=== PATIENT | male | born 1935 | race Caucasian/White ===

== ENCOUNTER 2021-10-14 00:34 | Observation (INO) ==
--- NOTE | 2021-10-14 01:21 | DR.CP ---
HPI Time Seen Time Seen by Provider: 10/14/21 00:59 PCP Primary Care Physician: JAYMIE AMRENTA HPI Comment HPI Comment: PATIENT IS 86YR OLD MALE WITH HISTORY OF CAD, S/P CABG AND CARDIAC STENT IN ER WITH BILATERAL CHEST AND ARM PAIN AND PAIN BOTH LEGS SINCE 17:00PM LAST EVENING. PAIN IS SHARP. 9/10 ASSOCIATED WITH WEAKNESS AND SLIGHT SOB. NO COUGH OR CONGESTION. NO FEVER OR DYSURIA. NO NAUSEA, VOMITING OR DIARRHRA. PAIN IS CONSTANT. Complaint Chief Complaint Doctor Comments: BILATERAL CHEST AND ARM PAIN AND BILATERAL LEG PAIN SINCE 17:00PM LAST EVENING. Chief Complaint:: PT AMBULATORY IN ED WITH C/O BILATERAL CHEST PAIN, BILATERAL ARM PAIN AND BILATERAL LEG SINCE AROUND 5PM. COVID-19 Coronavirus risk:travel/contact w/high risk person: No Has patient experienced Coronavirus symptoms: No Reviewed Nurses Notes Review: Yes Source History Provided: Patient Mode of Arrival Mode of Arrival: Ambulatory Timing Onset of Chief Complaint: 10/13/21 Came on: Suddenly Duration Duration: Constant Duration: Hours Location Location of Chest Pain: Right, Left and Chest (ARMS AND LEGS.) Context Onset: At rest Cardiac Risk Factors: Hyperlipidemia and HTN PE Risk Factors: None History of: NV, Angioplasty and Other (ALIVE AND IBUPROFEN.) Prehospital Care: None Severity Severity: Moderate Modifying Factors Worsens: Exertion Impoves: Rest Associated Signs and Symptoms Associated Signs and Symptoms: Shortness of Breath PMH PMH Past Medical History: Yes Past Medical History: Arthritis, CHF, Coronary Artery Disease, GERD, Hypertension and Hypothyroidism Past Surgical History: Yes Surgical History: Angioplasty/Stents and CABG/Valve Surgery Family History History of Family Medical Conditions: No Social History Does patient currently use any type of tobacco product: No Have you used tobacco products in the last 12 months: No Type of Tobacco Use: None Does any household member use tobacco: No Alcohol Use: None Do you use any recreational Drugs:: No Lives With: Spouse Lives Where: Home Travel Risk Coronavirus risk:travel/contact w/high risk person: No Has patient experienced Coronavirus symptoms: No Infectious screening In the last 2 months have you had wt loss of >10#?: NO Have you had fever, night sweats or hemotysis?: No Have you traveled outside the country in the last 6 months?: No Isolation: Standard ROS Review of Systems Constitutional: See HPI, Weakness and Fatigue; negative Fever Eyes: No Symptoms Reported and See HPI ENTM: See HPI; negative No Symptoms Reported, Nose Discharge, Nose Congestion and Throat Swelling Respiratoy: No Symptoms Reported, See HPI and Short of Breath (ON EXERTION.); negative Moist Cough Cardiovascular: No Symptoms Reported, See HPI and Chest Pain Gastrointestinal/Abdominal: No Symptoms Reported and See HPI; negative Abdominal Pain, Diarrhea, Nausea and Vomiting Genitourinary: No Symptoms Reported and See HPI; negative Dysuria Neurological: See HPI and Weakness; negative Headache and Dizziness Musculoskeletal: No Symptoms Reported and See HPI Integumentary: No Symptoms Reported and See HPI; negative Dryness, Rash and Juandice Hematologic/Lymphatic: No Symptoms Reported, See HPI, Easy Bleeding and Easy Bruising Endocrine: No Symptoms Reported and Intolerance to Cold; negative Increased Thirst and Increased Urine Psychiatric: No Symptoms Reported and See HPI All Other Systems: Reviewed and Negative PE Vitals Vitals: Temperature 98.2 F Pulse Rate 66 Respiratory Rate 15 Blood Pressure [Right Arm] 133/68 Blood Pressure 156/70 O2 Sat by Pulse Oximetry 98 General Limitations: No Limitations General Appearance: Alert and In No Apparent Distress (AT REST.) Head Head Exam: Normal Inspection Eyes Eye exam: Normal Appearance; negative Scleral Icterus and Conjunctival Injection ENT ENT Exam: Normal Exam; negative Normal Oropharynx, Normal External Ear Exam and Mucous Membranes Moist Chest Chest Inspection: Normal Inspection and Symmetric Chest Wall Rise; negative Tenderness Respiratory Respiratory Exam: Normal Lung Sounds Bilat; negative Accessory Muscle Use, Chest Wall Tenderness and Respiratory Distress Respiratory Exam: Bilateral: Rhonchi and Lower: Rhonchi Cardiovascular Cardiovascular Exam: Regular Rate, Normal Rhythm, Normal Heart Sounds and Systolic Murmur; negative Diastolic Murmur Pulse: Normal Edema: Bilateral, Lower (TRACE) and Extremity Abdominal Exam Abdominal Exam: Normal Inspection, Normal Bowel Sounds and Soft; negative Tenderness Extremities Extremities Exam: Normal Inspection, Normal Capillary Refill and Edema (TRACE.) Back Back Exam: Normal Inspection; negative (R) CVA Tenderness and (L) CVA Tenderness Neurologic Neurological Exam: Alert and Oriented X3; negative Motor Sensory Deficit Psychiatric Psychiatric Exam: Normal Affect and Normal Mood Skin Skin Exam: Warm, Dry, Intact and Normal Color MDM Additional Information Additional Information Obtained From: Old Records and Family Differential Diagnosis Differential Diagnosis: Angina, Chest Wall Pain, Cholelithasis, CHF, Costochondritis, Gastritis, Myocardial Infarction, Pericarditis, Pleuritis, Pneumonia, Pneumothorax and Pulmonary Embolus COURSE Treatment Treatment: SEE ORDERS.. ASA 324MG PO CHEWABLE, NTG 0,4MG Q5MIN PRN TIMES 3 AND PEPCID 20MG IVPB IN ER. NS 50CC/HR. Consultation Consultation Comments: DISCUSSED PATIENT WITH DR. MAXWELL. SHE WILL ADMIT P ATIENT. Education/Counseling Education/Counseling: Patient Educated On: Diagnosis ROR Labs Reviewed Laboratory Results Reviewed?: Yes Result Diagrams: 10/14/21 01:44 10/14/21 01:44 Laboratory: WBC 5.5 X10^3/uL (3.6-10.0) 10/14/21 01:44 RBC 3.93 X10^6/uL (4.7-6.0) L 10/14/21 01:44 Hgb 12.6 g/dL (13.5-18.0) L 10/14/21 01:44 Hct 35.7 % (42.0-54.0) L 10/14/21 01:44 MCV 90.8 fL (80.0-100.0) 10/14/21 01:44 MCH 32.0 pg (27.0-34.0) 10/14/21 01:44 MCHC 35.2 g/dL (33.0-35.0) H 10/14/21 01:44 RDW 14.0 % (11.6-16.5) 10/14/21 01:44 Plt Count 204 X10^3/uL (150.0-450.0) 10/14/21 01:44 MPV 8.1 fL (7.4-11.0) 10/14/21 01:44 Neut % (Auto) 57.9 % (42.0-75.0) 10/14/21 01:44 Lymph % (Auto) 24.2 % (21.0-51.0) 10/14/21 01:44 [place] % (Auto) 14.2 % (0.0-13.0) H 10/14/21 01:44 Eos % (Auto) 3.1 % (0.9-2.9) H 10/14/21 01:44 Baso % (Auto) 0.6 % (0.2-1.0) 10/14/21 01:44 Neut # (Auto) 3.2 x10^3/uL (2.2-4.8) 10/14/21 01:44 Lymph # (Auto) 1.3 X10^3/uL (1.3-2.9) 10/14/21 01:44 [place] # (Auto) 0.8 x10^3/uL (0.3-0.8) 10/14/21 01:44 Eos # (Auto) 0.2 x10^3/uL (0.0-0.2) 10/14/21 01:44 Baso # (Auto) 0.0 X10^3/uL (0.0-0.1) 10/14/21 01:44 Absolute Nucleated RBC 0.1 /100WBC 10/14/21 01:44 D-Dimer 0.83 ug/ml (0.0-0.57) H* 10/14/21 01:44 Sodium 127 mmol/L (136-145) L 10/14/21 01:44 Corrected Sodium 127 mmol/L (136-145) L 10/14/21 01:44 Potassium 4.0 mmol/L (3.5-5.1) 10/14/21 01:44 Chloride 95 mmol/L (98-107) L 10/14/21 01:44 Carbon Dioxide 26.8 mmol/L (21-32) 10/14/21 01:44 BUN 10 mg/dL (7-18) 10/14/21 01:44 Creatinine 0.74 mg/dL (0.70-1.30) 10/14/21 01:44 Est GFR (MDRD) Af Amer > 60 (>60) 10/14/21 01:44 Est GFR (MDRD) Non-Af > 60 (>60) 10/14/21 01:44 Glucose 113 mg/dL (65-99) H 10/14/21 01:44 Calcium 8.6 mg/dL (8.5-10.1) 10/14/21 01:44 Corrected Calcium 9.2 mg/dL (8.5-10.1) 10/14/21 01:44 Total Bilirubin 0.50 mg/dL (0.2-1.0) 10/14/21 01:44 AST 21 Units/L (15-37) 10/14/21 01:44 ALT 26 Units/L (12-78) 10/14/21 01:44 Alkaline Phosphatase 68 Units/L (46-116) 10/14/21 01:44 Creatine Kinase 372 Units/L (39-308) H 10/14/21 01:44 CK-MB (CK-2) 8.7 ng/mL (0-4.0) H* 10/14/21 01:44 CK/CKMB % Calc 2.3 % (<4) 10/14/21 01:44 Troponin I < 0.02 ng/mL (0-1.5) 10/14/21 01:44 B-Natriuretic Peptide 60.9 pg/mL (0-79) 10/14/21 01:44 Total Protein 7.0 g/dL (6.4-8.2) 10/14/21 01:44 Albumin 3.3 g/dL (3.4-5.0) L 10/14/21 01:44 Globulin 3.7 g/dL (2.5-4.5) 10/14/21 01:44 Albumin/Globulin Ratio 0.9 Ratio (1.1-2.1) L 10/14/21 01:44 Specimen Type Random urine 10/14/21 01:35 Urine Color Yellow (YELLOW) 10/14/21 01:35 Urine Appearance Clear (CLEAR) 10/14/21 01:35 Urine pH 7.0 (5.0 - 8.0) 10/14/21 01:35 Ur Specific [place] 1.015 (1.000-1.030) 10/14/21 01:35 Urine Protein Negative (NEGATIVE) 10/14/21 01:35 Urine Glucose (UA) Negative (NEGATIVE) 10/14/21 01:35 Urine Ketones Negative (NEGATIVE) 10/14/21 01:35 Urine Occult Blood 1+ (NEGATIVE) 10/14/21 01:35 Urine Nitrite Negative (NEGATIVE) 10/14/21 01:35 Urine Bilirubin Negative (NEGATIVE) 10/14/21 01:35 Urine Urobilinogen Normal (NORMAL) 10/14/21 01:35 Ur Leukocyte Esterase Negative (NEGATIVE) 10/14/21 01:35 Urine RBC None seen /HPF (0-3) 10/14/21 01:35 Urine WBC None seen /HPF (0-5) 10/14/21 01:35 Ur Squamous Epith Cells Few /HPF (NEGATIVE) 10/14/21 01:35 Urine Bacteria Negative /HPF (NEGATIVE) 10/14/21 01:35 Ur Culture Indicated? No/not indicated 10/14/21 01:35 SARS CoV-2 RNA Rapid VIANEY Negative (NEGATIVE) 10/14/21 03:26 XRAY XRAY Interpreted by: Radiologist (REPORTS NOTED AND DISCUSSED WITH PATIENT.) and Self EKG Rate: 74 [place]: Normal Rhythm: NSR Block: None Hypertrophy: None ST: Infarct Opioid Opioid Risk Tool Age (Kartik box if 16-45): No History of Preadolescent Sexual Abuse: No Total: 0 Total Score Risk Category: Low Risk Copyright: Darvin DAHL predicting aberrant behaviors Diagnosis Discharge Problem: Chest pain, rule out acute myocardial infarction, Acute hyponatremia, Mild dehydration Instructions Forms: Precautions for COVID19 [facility] Patient Portal Social Distancing
[2021-10-14] MEDS ORDERED: PEPCID 20 MG IV PREMIX* 20 MG/50 ML BAG IV ONE (01:24)
[2021-10-14] MEDS ORDERED: NITROSTAT SL PRN (01:24)
[2021-10-14] MEDS ORDERED: ASPIRIN EC 81 MG PO ONE (01:24)
[2021-10-14] MEDS ORDERED: ASPIRIN 81 MG CHEWTAB ONE (01:29)
[2021-10-14] MEDS ORDERED: PEPCID 20 MG IV PREMIX* 50 ML IV ONE (01:29)
[2021-10-14 02:02] LABS: BILIRUBIN,URINE NEGATIVE (NEGATIVE); BLOOD/HEMOGLOBIN,URINE 1+ (NEGATIVE); GLUCOSE, URINE NEGATIVE (NEGATIVE); KETONES,URINE NEGATIVE (NEGATIVE); LEUKOCYTE ESTERASE ,URINE NEGATIVE (NEGATIVE); NITRITES,URINE NEGATIVE (NEGATIVE); PROTEIN,URINE NEGATIVE (NEGATIVE); UROBILINOGEN,URINE NORMAL (NORMAL)
[2021-10-14 02:08] LABS: APPEARANCE,URINE CLEAR (CLEAR); COLOR,URINE YELLOW (YELLOW)
[2021-10-14 02:09] LABS: BASOPHILS % (AUTO) 0.6 % (0.2-1.0); EOSINOPHILS # (AUTO) 0.2 x10^3/uL (0.0-0.2); EOSINOPHILS % (AUTO) 3.1 % (0.9-2.9); HEMATOCRIT 35.7 % (42.0-54.0); HEMOGLOBIN 12.6 g/dL (13.5-18.0); LYMPHOCYTES # (AUTO) 1.3 X10^3/uL (1.3-2.9); LYMPHOCYTES % (AUTO) 24.2 % (21.0-51.0); MEAN CORPUSCULAR HGB CONC 35.2 g/dL (33.0-35.0); MEAN CORPUSCULAR VOLUME 90.8 fL (80.0-100.0); MEAN PLATELET VOLUME 8.1 fL (7.4-11.0); MONOCYTES # (AUTO) 0.8 x10^3/uL (0.3-0.8); MONOCYTES % (AUTO) 14.2 % (0.0-13.0); NEUTROPHILS # (AUTO) 3.2 x10^3/uL (2.2-4.8); NEUTROPHILS % (AUTO) 57.9 % (42.0-75.0); PLATELET COUNT 204 X10^3/uL (150.0-450.0); RED BLOOD COUNT 3.93 X10^6/uL (4.7-6.0); WHITE BLOOD COUNT 5.5 X10^3/uL (3.6-10.0)
[2021-10-14 02:09] LABS: BACTERIA,URINE NEGATIVE /HPF (NEGATIVE); RBC,URINE NONE SEEN /HPF (0-3); SQUAMOUS EPITHELIAL CELL,UR FEW /HPF (NEGATIVE)
--- NOTE | 2021-10-14 02:31 | RAD ---
HISTORYPT C/O CHEST PAIN PMH: CHF, CAD, HTN PSH: ANGIOPLASTY/STENTS, CABG/VALVESTUDYCHEST, 1 VIEWCOMPARISONNoneFINDINGSThe trachea is midline. The cardiac silhouette is unremarkable. Changes of prior CABG surgery. The lungs are clear without focal infiltrate or effusion. Pulmonary vasculature within normal limits. No pneumothorax. The bony thorax is unremarkable.IMPRESSIONNo acute cardiopulmonary findings .Electronically signed by: Saw Vegas (Oct 14, 2021 02:30:05)
[2021-10-14 02:59] LABS: ALANINE AMINOTRANSFERASE 26 Units/L (12-78); ALBUMIN 3.3 g/dL (3.4-5.0); ALKALINE PHOSPHATASE 68 Units/L (46-116); ASPARTATE AMINO TRANSFERASE 21 Units/L (15-37); BLOOD UREA NITROGEN 10 mg/dL (7-18); CALCIUM 8.6 mg/dL (8.5-10.1); CARBON DIOXIDE 26.8 mmol/L (21-32); CHLORIDE 95 mmol/L (98-107); CKMB % 2.3 % (<4); COR CA(FOR HYPOALB) 9.2 mg/dL (8.5-10.1); COR NA(FOR HYPERGLY) 127 mmol/L (136-145); CREATINE KINASE 372 Units/L (39-308); CREATININE 0.74 mg/dL (0.70-1.30); SODIUM 127 mmol/L (136-145); TROPONIN I < 0.02 ng/mL (0-1.5); eGFR NON BLACK RACES > 60 (>60)
[2021-10-14 03:01] LABS: CREATINE KINASE MB 8.7 ng/mL (0-4.0)
[2021-10-14] MEDS ORDERED: NS 1,000 ML IV 1,000 ML IV SCH (04:00)
--- NOTE | 2021-10-14 04:57 | CT ---
HISTORYCHEST PAIN, ELEVATED D-DIMERSTUDYCTA CHESTCOMPARISONChest radiograph 10/14/2021TECHNIQUEMultiple axial images of the chest were obtained from the thoracic inlet to the upper abdomen after the administration of IV contrast. 3D reconstructions utilizing axial MIPS imaging was performed and reviewed. Dose reduction techniques including Automated Exposure Control (AEC) and adjustment of mA and kV were utilized.FINDINGSThe mediastinum does not demonstrate significant pathological lymphadenopathy. There is no paracardial effusion observed. The thoracic aorta is normal in its contour without evidence for aneurysmal dilatation. The central pulmonary arterial system does not demonstrate central filling defects to suggest pulmonary emboli.Evaluation of the lung parenchyma fails to demonstrate focal consolidation or effusion . No pulmonary nodule or mass can be identified. The bony thorax is unremarkable in its appearance . The visualized portions of the upper abdomen are grossly unremarkable .IMPRESSIONUnremarkable CTA of the chest.Electronically signed by: Saw Vegas (Oct 14, 2021 04:56:10)
[2021-10-14 06:37] VITALS: BMI 22.8
--- NOTE | 2021-10-14 06:40 | DR.CP ---
HPI Time Seen Time Seen by Provider: 10/14/21 00:59 PCP Primary Care Physician: JAYMIE ARMENTA HPI Comment HPI Comment: THIS CHART HAS BEING COMPLETED. Complaint Chief Complaint:: PT AMBULATORY IN ED WITH C/O BILATERAL CHEST PAIN, BILATERAL ARM PAIN AND BILATERAL LEG SINCE AROUND 5PM. COVID-19 Coronavirus risk:travel/contact w/high risk person: No Has patient experienced Coronavirus symptoms: No Source History Provided: Patient Mode of Arrival Mode of Arrival: Ambulatory Timing Onset of Chief Complaint: 10/13/21 Associated Signs and Symptoms Associated Signs and Symptoms: Shortness of Breath PMH PMH Past Medical History: Yes Past Medical History: Arthritis, CHF, Coronary Artery Disease, GERD, Hypertension and Hypothyroidism Past Medical History Comment: BLADDER CANCER Past Surgical History: Yes Surgical History: Angioplasty/Stents and CABG/Valve Surgery Family History History of Family Medical Conditions: No Social History Does patient currently use any type of tobacco product: No Have you used tobacco products in the last 12 months: No Type of Tobacco Use: None Does any household member use tobacco: No Alcohol Use: None Do you use any recreational Drugs:: No Lives With: Spouse Lives Where: Home Travel Risk Coronavirus risk:travel/contact w/high risk person: No Has patient experienced Coronavirus symptoms: No Infectious screening In the last 2 months have you had wt loss of >10#?: NO Have you had fever, night sweats or hemotysis?: No Have you traveled outside the country in the last 6 months?: No Isolation: Standard PE Vitals Vitals: Temperature 98.2 F Pulse Rate 59 Respiratory Rate 12 Blood Pressure [Right Arm] 133/68 Blood Pressure 124/63 O2 Sat by Pulse Oximetry 95 ROR Labs Reviewed Result Diagrams: 10/14/21 01:44 10/14/21 01:44 Laboratory: WBC 5.5 X10^3/uL (3.6-10.0) 10/14/21 01:44 RBC 3.93 X10^6/uL (4.7-6.0) L 10/14/21 01:44 Hgb 12.6 g/dL (13.5-18.0) L 10/14/21 01:44 Hct 35.7 % (42.0-54.0) L 10/14/21 01:44 MCV 90.8 fL (80.0-100.0) 10/14/21 01:44 MCH 32.0 pg (27.0-34.0) 10/14/21 01:44 MCHC 35.2 g/dL (33.0-35.0) H 10/14/21 01:44 RDW 14.0 % (11.6-16.5) 10/14/21 01:44 Plt Count 204 X10^3/uL (150.0-450.0) 10/14/21 01:44 MPV 8.1 fL (7.4-11.0) 10/14/21 01:44 Neut % (Auto) 57.9 % (42.0-75.0) 10/14/21 01:44 Lymph % (Auto) 24.2 % (21.0-51.0) 10/14/21 01:44 [place] % (Auto) 14.2 % (0.0-13.0) H 10/14/21 01:44 Eos % (Auto) 3.1 % (0.9-2.9) H 10/14/21 01:44 Baso % (Auto) 0.6 % (0.2-1.0) 10/14/21 01:44 Neut # (Auto) 3.2 x10^3/uL (2.2-4.8) 10/14/21 01:44 Lymph # (Auto) 1.3 X10^3/uL (1.3-2.9) 10/14/21 01:44 [place] # (Auto) 0.8 x10^3/uL (0.3-0.8) 10/14/21 01:44 Eos # (Auto) 0.2 x10^3/uL (0.0-0.2) 10/14/21 01:44 Baso # (Auto) 0.0 X10^3/uL (0.0-0.1) 10/14/21 01:44 Absolute Nucleated RBC 0.1 /100WBC 10/14/21 01:44 D-Dimer 0.83 ug/ml (0.0-0.57) H* 10/14/21 01:44 Sodium 127 mmol/L (136-145) L 10/14/21 01:44 Corrected Sodium 127 mmol/L (136-145) L 10/14/21 01:44 Potassium 4.0 mmol/L (3.5-5.1) 10/14/21 01:44 Chloride 95 mmol/L (98-107) L 10/14/21 01:44 Carbon Dioxide 26.8 mmol/L (21-32) 10/14/21 01:44 BUN 10 mg/dL (7-18) 10/14/21 01:44 Creatinine 0.74 mg/dL (0.70-1.30) 10/14/21 01:44 Est GFR (MDRD) Af Amer > 60 (>60) 10/14/21 01:44 Est GFR (MDRD) Non-Af > 60 (>60) 10/14/21 01:44 Glucose 113 mg/dL (65-99) H 10/14/21 01:44 Calcium 8.6 mg/dL (8.5-10.1) 10/14/21 01:44 Corrected Calcium 9.2 mg/dL (8.5-10.1) 10/14/21 01:44 Total Bilirubin 0.50 mg/dL (0.2-1.0) 10/14/21 01:44 AST 21 Units/L (15-37) 10/14/21 01:44 ALT 26 Units/L (12-78) 10/14/21 01:44 Alkaline Phosphatase 68 Units/L (46-116) 10/14/21 01:44 Creatine Kinase 372 Units/L (39-308) H 10/14/21 01:44 CK-MB (CK-2) 8.7 ng/mL (0-4.0) H* 10/14/21 01:44 CK/CKMB % Calc 2.3 % (<4) 10/14/21 01:44 Troponin I < 0.02 ng/mL (0-1.5) 10/14/21 01:44 B-Natriuretic Peptide 60.9 pg/mL (0-79) 10/14/21 01:44 Total Protein 7.0 g/dL (6.4-8.2) 10/14/21 01:44 Albumin 3.3 g/dL (3.4-5.0) L 10/14/21 01:44 Globulin 3.7 g/dL (2.5-4.5) 10/14/21 01:44 Albumin/Globulin Ratio 0.9 Ratio (1.1-2.1) L 10/14/21 01:44 Specimen Type Random urine 10/14/21 01:35 Urine Color Yellow (YELLOW) 10/14/21 01:35 Urine Appearance Clear (CLEAR) 10/14/21 01:35 Urine pH 7.0 (5.0 - 8.0) 10/14/21 01:35 Ur Specific [place] 1.015 (1.000-1.030) 10/14/21 01:35 Urine Protein Negative (NEGATIVE) 10/14/21 01:35 Urine Glucose (UA) Negative (NEGATIVE) 10/14/21 01:35 Urine Ketones Negative (NEGATIVE) 10/14/21 01:35 Urine Occult Blood 1+ (NEGATIVE) 10/14/21 01:35 Urine Nitrite Negative (NEGATIVE) 10/14/21 01:35 Urine Bilirubin Negative (NEGATIVE) 10/14/21 01:35 Urine Urobilinogen Normal (NORMAL) 10/14/21 01:35 Ur Leukocyte Esterase Negative (NEGATIVE) 10/14/21 01:35 Urine RBC None seen /HPF (0-3) 10/14/21 01:35 Urine WBC None seen /HPF (0-5) 10/14/21 01:35 Ur Squamous Epith Cells Few /HPF (NEGATIVE) 10/14/21 01:35 Urine Bacteria Negative /HPF (NEGATIVE) 10/14/21 01:35 Ur Culture Indicated? No/not indicated 10/14/21 01:35 SARS CoV-2 RNA Rapid VIANEY Negative (NEGATIVE) 10/14/21 03:26 Opioid Opioid Risk Tool Age (Kartik box if 16-45): No History of Preadolescent Sexual Abuse: No Total: 0 Total Score Risk Category: Low Risk Copyright: Darvin DAHL predicting aberrant behaviors Diagnosis Discharge Problem: Chest pain, rule out acute myocardial infarction, Acute hyponatremia, Mild dehydration Instructions Forms: Precautions for COVID19 [facility] Patient Portal Social Distancing
[2021-10-14 07:58] LABS: CKMB % 2.2 % (<4); CREATINE KINASE 305 Units/L (39-308); TROPONIN I < 0.02 ng/mL (0-1.5)
[2021-10-14 08:03] LABS: CREATINE KINASE MB 6.6 ng/mL (0-4.0)
[2021-10-14] MEDS ORDERED: ASPIRIN EC 81 MG PO SCH (09:00)
[2021-10-14] MEDS ORDERED: PATIENT'S HOME MEDICATION (Zinc 50 mg Capsule) PO SCH (09:00)
[2021-10-14] MEDS ORDERED: MAGNESIUM CHLORIDE 64 MG PO SCH (09:00)
[2021-10-14] MEDS ORDERED: ZESTRIL TAB 5 MG PO SCH (09:00)
[2021-10-14] MEDS ORDERED: MYLICON TAB 80 MG CHEW PO SCH (09:00)
[2021-10-14] MEDS ORDERED: PROTONIX TAB 40 MG PO SCH (09:00)
[2021-10-14] MEDS ORDERED: FOLIC ACID TAB 1 MG PO SCH (09:00)
[2021-10-14] MEDS ORDERED: [UNRECOGNIZED DRUG - OTHER] PO SCH (09:00)
[2021-10-14] MEDS ORDERED: CALCIUM PHOS DIBAS VITAMIN D3 PO SCH (09:00)
[2021-10-14] MEDS ORDERED: SYNTHROID 75 mcg TAB PO SCH (09:00)
[2021-10-14] MEDS ORDERED: ALPHA D GALACTOSIDASE PO SCH (09:00)
[2021-10-14] MEDS ORDERED: COENZYME Q10 100 MG PO SCH (09:00)
[2021-10-14] MEDS: ZINC SULFATE PO SCH ×2 (09:28)
[2021-10-14 11:52] VITALS: BP 130/63
--- NOTE | 2021-10-14 12:46 | DR.SSS ---
SHORT STAY SUMMARY Admission Date Date of Admission: 10/14/21 Discharge Date Discharge Date: 10/14/21 Admission Diagnoses Admission Diagnoses: Chest pain Hyponatremia Dehydration Discharge Diagnoses Discharge Diagnoses: Chest pain rule out Muskuloskeletal pain Chronic Hyponatremia Hx of CABG Arthritis Chief Complaint Chief Complaint: chest pain History of Present Illness History of Present Illness: Mr Mast is a 86y/o male who presented with chest pain and back pain. He said it's been going on for a few days and worsened last night. He reports pain in both shoulder with radiation down the arm. Denies any associated Sx including SOB, diaphoresis or nausea. Patient states pain is constant. He states it got worse after he was working in the garden the other day. He takes Tylenol prn for arthritis. He does have a hx of CABG. On admission, his initial EKG and cardiac enzymes were normal. He was found to have low Na 127. Patient reports he always has low Na in the 130s. He was admitted for chest pain rule out and hyponatremia. Past Medical History Past Medical History: Arthritis, CHF, Coronary Artery Disease, GERD, Hypertension and Hypothyroidism Past Surgical History Surgical History: Angioplasty/Stents and CABG/Valve Surgery Allergies Allergies Allergy/AdvReac Type Severity Reaction Status Date / Time adhesive Allergy Verified 10/14/21 00:47 lorazepam [From Ativan] Allergy Verified 10/14/21 00:48 tape Allergy Uncoded 08/22/16 01:02 Medications Home Medications: adhesive Allergy (Verified 10/14/21 00:47) lorazepam [From Ativan] Allergy (Verified 10/14/21 00:48) tape Allergy (Uncoded 08/22/16 01:02) CONTINUE taking the following medications [id number] [Beano] 300 unit PO QAM 10/14/21 [History] aspirin [Aspir-81] 81 mg PO DAILY 10/14/21 [History] calcium phos,dibas-vitamin D3 [Vitamin D (with calcium)] 1 tab PO QAM 10/14/21 [History] coenzyme Q10 [CoQ-10] 100 mg PO QAM 10/14/21 [History] folic acid 1 mg PO DAILY 10/14/21 [History] levothyroxine [Synthroid] 75 mcg PO DAILY 10/14/21 [History] lisinopril 5 mg PO QAM 10/14/21 [History] magnesium chloride [Mag 64] 60 mg PO QAM 10/14/21 [History] pantoprazole [Protonix] 40 mg PO BID 10/14/21 [History] simethicone [Gas-X] 80 mg PO QAM 10/14/21 [History] simvastatin 80 mg PO 4XW 10/14/21 [History] tamsulosin 0.4 mg PO QHS 10/14/21 [History] zinc 50 mg PO QAM 10/14/21 [History] Family History Family Medical History: Cancer, [place] and Hypertension Social History Does patient currently use any type of tobacco product: No Have you used tobacco products in the last 12 months: No Type of Tobacco Use: None Does any household member use tobacco: No Alcohol Use: None Drug Use: None Review of Systems Constitutional: No Symptoms Reported Eyes: No Symptoms Reported ENT: No Symptoms Reported Respiratory: No Symptoms Reported Cardiovascular: Chest Pain Gastrointestinal: No Symptoms Reported Genitourinary: No Symptoms Reported Musculoskeletal: Shoulder Pain, Arm Pain and Back Pain Skin: No Symptoms Reported Neurological: No Symptoms Reported Physical Exam Vital Signs: Last Vital Signs Temp 98.3 F 10/14/21 11:51 Pulse 63 10/14/21 11:51 Resp 18 10/14/21 11:51 BP 130/63 10/14/21 11:51 Pulse Ox 97 10/14/21 11:51 Oriented: Normal Eyes: Normal Ear: Normal Nose: Normal Throat: Normal Respiratory: Diminished Throughout Cardiovascular: Normal Auscultation: Bowel Sounds: Normal Palpation: Normal Tenderness: Normal Skin: Decreased Turgur Musculoskeletal: Right, Left and Shoulder Psychiatric: Normal Mood Description: Calm Affect: Normal Speech Pattern: Clear and Appropriate Labs Labs: Laboratory Last Values WBC 5.5 X10^3/uL (3.6-10.0) 10/14/21 01:44 RBC 3.93 X10^6/uL (4.7-6.0) L 10/14/21 01:44 Hgb 12.6 g/dL (13.5-18.0) L 10/14/21 01:44 Hct 35.7 % (42.0-54.0) L 10/14/21 01:44 MCV 90.8 fL (80.0-100.0) 10/14/21 01:44 MCH 32.0 pg (27.0-34.0) 10/14/21 01:44 MCHC 35.2 g/dL (33.0-35.0) H 10/14/21 01:44 RDW 14.0 % (11.6-16.5) 10/14/21 01:44 Plt Count 204 X10^3/uL (150.0-450.0) 10/14/21 01:44 MPV 8.1 fL (7.4-11.0) 10/14/21 01:44 Neut % (Auto) 57.9 % (42.0-75.0) 10/14/21 01:44 Lymph % (Auto) 24.2 % (21.0-51.0) 10/14/21 01:44 Castro % (Auto) 14.2 % (0.0-13.0) H 10/14/21 01:44 Eos % (Auto) 3.1 % (0.9-2.9) H 10/14/21 01:44 Baso % (Auto) 0.6 % (0.2-1.0) 10/14/21 01:44 Neut # (Auto) 3.2 x10^3/uL (2.2-4.8) 10/14/21 01:44 Lymph # (Auto) 1.3 X10^3/uL (1.3-2.9) 10/14/21 01:44 Castro # (Auto) 0.8 x10^3/uL (0.3-0.8) 10/14/21 01:44 Eos # (Auto) 0.2 x10^3/uL (0.0-0.2) 10/14/21 01:44 Baso # (Auto) 0.0 X10^3/uL (0.0-0.1) 10/14/21 01:44 Absolute Nucleated RBC 0.1 /100WBC 10/14/21 01:44 D-Dimer 0.83 ug/ml (0.0-0.57) H* 10/14/21 01:44 Sodium 127 mmol/L (136-145) L 10/14/21 01:44 Corrected Sodium 127 mmol/L (136-145) L 10/14/21 01:44 Potassium 4.0 mmol/L (3.5-5.1) 10/14/21 01:44 Chloride 95 mmol/L (98-107) L 10/14/21 01:44 Carbon Dioxide 26.8 mmol/L (21-32) 10/14/21 01:44 BUN 10 mg/dL (7-18) 10/14/21 01:44 Creatinine 0.74 mg/dL (0.70-1.30) 10/14/21 01:44 Est GFR (MDRD) Af Amer > 60 (>60) 10/14/21 01:44 Est GFR (MDRD) Non-Af > 60 (>60) 10/14/21 01:44 Glucose 113 mg/dL (65-99) H 10/14/21 01:44 Calcium 8.6 mg/dL (8.5-10.1) 10/14/21 01:44 Corrected Calcium 9.2 mg/dL (8.5-10.1) 10/14/21 01:44 Total Bilirubin 0.50 mg/dL (0.2-1.0) 10/14/21 01:44 AST 21 Units/L (15-37) 10/14/21 01:44 ALT 26 Units/L (12-78) 10/14/21 01:44 Alkaline Phosphatase 68 Units/L (46-116) 10/14/21 01:44 Creatine Kinase 305 Units/L (39-308) 10/14/21 07:00 CK-MB (CK-2) 6.6 ng/mL (0-4.0) H* 10/14/21 07:00 CK/CKMB % Calc 2.2 % (<4) 10/14/21 07:00 Troponin I < 0.02 ng/mL (0-1.5) 10/14/21 07:00 B-Natriuretic Peptide 60.9 pg/mL (0-79) 10/14/21 01:44 Total Protein 7.0 g/dL (6.4-8.2) 10/14/21 01:44 Albumin 3.3 g/dL (3.4-5.0) L 10/14/21 01:44 Globulin 3.7 g/dL (2.5-4.5) 10/14/21 01:44 Albumin/Globulin Ratio 0.9 Ratio (1.1-2.1) L 10/14/21 01:44 Specimen Type Random urine 10/14/21 01:35 Urine Color Yellow (YELLOW) 10/14/21 01:35 Urine Appearance Clear (CLEAR) 10/14/21 01:35 Urine pH 7.0 (5.0 - 8.0) 10/14/21 01:35 Ur Specific [place] 1.015 (1.000-1.030) 10/14/21 01:35 Urine Protein Negative (NEGATIVE) 10/14/21 01:35 Urine Glucose (UA) Negative (NEGATIVE) 10/14/21 01:35 Urine Ketones Negative (NEGATIVE) 10/14/21 01:35 Urine Occult Blood 1+ (NEGATIVE) 10/14/21 01:35 Urine Nitrite Negative (NEGATIVE) 10/14/21 01:35 Urine Bilirubin Negative (NEGATIVE) 10/14/21 01:35 Urine Urobilinogen Normal (NORMAL) 10/14/21 01:35 Ur Leukocyte Esterase Negative (NEGATIVE) 10/14/21 01:35 Urine RBC None seen /HPF (0-3) 10/14/21 01:35 Urine WBC None seen /HPF (0-5) 10/14/21 01:35 Ur Squamous Epith Cells Few /HPF (NEGATIVE) 10/14/21 01:35 Urine Bacteria Negative /HPF (NEGATIVE) 10/14/21 01:35 Ur Culture Indicated? No/not indicated 10/14/21 01:35 SARS CoV-2 RNA Rapid VIANEY Negative (NEGATIVE) 10/14/21 03:26 Assessment/Plan (1) Hyponatremia: (2) Mild dehydration: (3) Chest pain, rule out acute myocardial infarction: Hospital Course Hospital Course: Patient admitted with telemetry, cardiac enzymes monitored, neg x 3 along with no EKG changes. He did not have any further episodes of chest pain. Patient was started on gentle hydration with NS. BMP repeated and Na improved to 130. Patient will f/u with PCP as scheduled in one week. He is stable for discharge. Discharge Medications Discharge Medications: Home Medication List [id number] [Beano] 300 unit PO QAM 10/14/21 [History] aspirin [Aspir-81] 81 mg PO DAILY 10/14/21 [History] calcium phos,dibas-vitamin D3 [Vitamin D (with calcium)] 1 tab PO QAM 10/14/21 [History] coenzyme Q10 [CoQ-10] 100 mg PO QAM 10/14/21 [History] folic acid 1 mg PO DAILY 10/14/21 [History] levothyroxine [Synthroid] 75 mcg PO DAILY 10/14/21 [History] lisinopril 5 mg PO QAM 10/14/21 [History] magnesium chloride [Mag 64] 60 mg PO QAM 10/14/21 [History] pantoprazole [Protonix] 40 mg PO BID 10/14/21 [History] simethicone [Gas-X] 80 mg PO QAM 10/14/21 [History] simvastatin 80 mg PO 4XW 10/14/21 [History] tamsulosin 0.4 mg PO QHS 10/14/21 [History] zinc 50 mg PO QAM 10/14/21 [History] Prescriptions: Discharge Disposition Discharge Disposition: Home
[2021-10-14 13:58] LABS: BLOOD UREA NITROGEN 8 mg/dL (7-18); CALCIUM 8.7 mg/dL (8.5-10.1); CARBON DIOXIDE 27.3 mmol/L (21-32); CHLORIDE 98 mmol/L (98-107); COR NA(FOR HYPERGLY) 131 mmol/L (136-145); CREATININE 0.71 mg/dL (0.70-1.30); SODIUM 130 mmol/L (136-145); eGFR NON BLACK RACES > 60 (>60)
[2021-10-14 14:00] LABS: CREATINE KINASE MB 5.1 ng/mL (0-4.0)
[2021-10-14 14:01] LABS: CKMB % 1.9 % (<4); CREATINE KINASE 276 Units/L (39-308); TROPONIN I < 0.02 ng/mL (0-1.5)
[2021-10-14] MEDS ORDERED: ZOCOR TAB 40 MG PO SCH (21:00)
[2021-10-14] MEDS ORDERED: FLOMAX PO SCH (21:00)
== END 2021-10-14 14:53 | disposition home or self-care (01) ==
LOC: ER 00:39 → MED/SURG 00:39 → INTOOBSV 05:26 → OBSVTOIN 05:26 → MED/SURG 06:00
PROVIDERS: ADMIT Internal Medicine; ATTEND Internal Medicine
DX: E86.0 Dehydration; I10 Essential (primary) hypertension; R07.89 Other chest pain; R79.1 Abnormal coagulation profile; M54.89 Other dorsalgia; E03.8 Other specified hypothyroidism; R53.1 Weakness; E87.1 Hypo-osmolality and hyponatremia; R06.02 Shortness of breath; K21.9 Gastro-esophageal reflux disease without esophagitis; Z20.822 Contact with and (suspected) exposure to COVID-19; I25.10 Atherosclerotic heart disease of native coronary artery without angina pectoris